=== PATIENT | female | born 1975 | race Caucasian/White ===

== ENCOUNTER 2017-04-14 18:05 | Emergency (ER) | payer MEDICAID, SELFPAY | END 2017-04-14 19:53 | disposition home or self-care (01) | PROVIDERS: Emergency Provider Emergency Medicine; Visit Provider Emergency Medicine | DX: M43.6 Torticollis; Z88.0 Allergy status to penicillin; G44.209 Tension-type headache, unspecified, not intractable | CPT/HCPCS: 70450; 72125; 96372; 99283 ==